=== PATIENT | female | born 1955 | race Caucasian/White ===

== ENCOUNTER → 2017-06-23 17:10 | Outpatient (CLI) | payer OTHER, SELFPAY ==
[2017-06-28 12:56] LABS: HPV APTIMA, High Risk Negative (Negative)
== END ==
PROVIDERS: Family Provider Family Medicine; PCP Family Medicine; Visit Provider Nurse Practitioner Women's Health
DX: Z12.4 Encounter for screening for malignant neoplasm of cervix (principal)
CPT/HCPCS: 88175; G0145

== ENCOUNTER → 2017-07-10 10:02 | Outpatient (CLI) | payer OTHER, SELFPAY ==
--- NOTE | 2017-07-10 10:04 | BI_ITS ---
MAMMOGRAPHY - BILATERAL SCREENING REASON FOR EXAM: Female, 62 years old. Routine annual screening examination. PERTINENT HISTORY: Mother with breast cancer. Aunt with breast cancer. Remote bilateral breast reduction surgery. TECHNIQUE: Digital bilateral breast donte (3D mammographic acquisition) in the CC and MLO projections. 2-D mediolateral oblique (MLO) and craniocaudad (CC) views of both breasts were obtained. CAD: Full Field Digital Mammography with Computer Added Detection was performed. COMPARISON: Comparison is made with prior outside examination dated November 12, 2014. FINDINGS: Breast Composition: The breasts are heterogeneously dense, which may obscure small masses. There are no dominant masses or suspicious calcifications. Stable benign-appearing bilateral axillary lymph nodes. No other significant abnormalities are identified. There has been no significant change since the prior study. BI/SCREENING MAMM (CAD), BILAT IMPRESSION: Stable bilateral screening mammogram. Yearly follow-up mammogram recommended. (A) ASSESSMENT CATEGORY: BIRADS Category 2: Benign. A letter regarding these results will be sent to the patient by the facility within 30 days. Approximately 10% of breast cancers are not detected by mammography. A normal mammogram should not delay biopsy of a clinically suspicious abnormality. [id number] Electronically Signed: Cristi Pena MD at 13:14 EDT Tel [phone], Service support ,
== END ==
PROVIDERS: Family Provider Family Medicine; PCP Family Medicine; Visit Provider Nurse Practitioner Women's Health
DX: Z12.31 Encounter for screening mammogram for malignant neoplasm of breast (principal)
CPT/HCPCS: 77063; 77067

== ENCOUNTER → 2017-07-12 08:16 | Outpatient (CLI) | payer OTHER, SELFPAY ==
--- NOTE | 2017-07-12 08:18 | RAD_ITS ---
STUDY: X-RAY - ESOPHAGUS (BARIUM SWALLOW) WITH FLUOROSCOPY REASON FOR EXAM: Female, 62 years old. Prior fundoplication. Gastroesophageal reflux. TECHNIQUE: 19 view(s) of the esophagus were obtained following swallowing of barium. FLUOROSCOPY TIME (if supplied): (0:23) minutes/seconds COMPARISON: None. FINDINGS: There is no demonstrated esophageal foreign body. There is no demonstrated stricture or mucosal abnormality. Moderate-sized sliding hiatal hernia without gastroesophageal reflux. The patient ingested a 12 mm tablet of barium. The tablet is trapped at the gastroesophageal junction. Normal visualized aortic arch and descending thoracic aorta. Normal visualized pulmonary parenchyma. Normal visualized osseous structures of the thorax. RAD/Esophagus Only IMPRESSION: Moderate sized hiatal hernia without gastroesophageal reflux. The 12 mm tablet of barium is at at the gastroesophageal junction. Electronically Signed: Cristi Pena MD at 9:23 EDT Tel [phone], Service support ,
== END ==
PROVIDERS: Family Provider Family Medicine; PCP Family Medicine; Visit Provider Internal Medicine Gastroenterology
DX: K21.9 Gastro-esophageal reflux disease without esophagitis (principal); Z98.890 Other specified postprocedural states
CPT/HCPCS: 74220

== ENCOUNTER 2018-03-02 19:30 | Observation (INO) | payer OTHER, SELFPAY ==
[2018-03-02] VITALS (7 sets, daily range): BP systolic 111–165; BP diastolic 62–89; PULSE 83–114; RESP 16–22; TEMP 36.5–36.7; O2SAT 95–100; BMI 30.1; BMI 35.8
--- NOTE | 2018-03-02 19:51 | EKG12_ITS ---
Test Reason : SOB,CHEST DISCOMFORT Blood Pressure : / mmHG Vent. Rate : 094 BPM Atrial Rate : 094 BPM P-R Int : 138 ms QRS Dur : 078 ms QT Int : 332 ms P-R-T Axes : 042 030 055 degrees QTc Int : 415 ms Normal sinus rhythm Normal ECG Confirmed by SARA GARNICA, ADRIAN ([id number]), editor farm journal JU DIAZ ([id number]) on 03/07/2018 10:05:27 AM Referred By: Fernando Mcfadden Confirmed By:ADRIAN RUIZ MD
[2018-03-02] MEDS: Ipratropium/Albuterol Sulfate 3 ML AMPUL.NEB INHALATION (20:01)
[2018-03-02 20:29] LABS: Absolute Lymphocyte Count 2.44 X10^3/ul (0.83-4.51); Absolute Neutrophil Count 4.5 X10^3/uL (2.0-7.7); Basophil# 0.03 X10^3/uL; Basophil% 0.4 % (0-1); Eosinophil# 0.11 X10^3/uL; Eosinophils% 1.4 % (0-5); Hematocrit 38.2 % (37-47); Hemoglobin 12.5 g/dl (12.0-15.0); Lymphocyte # 2.44 X10^3/ul (4.0); Lymphocyte % 31.8 % (19-41); Mean Corp Hgb Conc 32.7 g/gl (32-36); Mean Corpuscular Hgb 30.3 pg (27.0-32.0); Mean Corpuscular Volume 92.7 fL (81-99); Monocyte# 0.56 X10^3/uL; Monocyte% 7.3 % (0-10); Neutrophil # 4.51 X10^3/uL (2.7-7.7); Neutrophil % 58.8 % (47-70); POSITIVE COUNT NO; POSITIVE DIFFERENTIAL NO; POSITIVE MORPHOLOGY NO; Platelet Count 317 K/mm3 (150-450); RBC Distribution Width CV 12.5 % (11.6-14.6); RBC Distribution Width SD 42.2 fl (35.1-43.9); Red Blood Count 4.12 M/mm3 (4.2-5.4); White Blood Count 7.7 K/mm3 (4.4-11.0)
[2018-03-02 20:56] LABS: Anion Gap 13 (5-15); BUN 15 mg/dL (7-18); BUN/Creat Ratio 14.4 RATIO (10-20); Calcium,Total 9.7 mg/dL (8.5-10.1); Chloride 99 mmol/L (98-107); Creatinine, Serum 1.04 mg/dL (0.55-1.02); EST Glomerular Filtration Rate 57 mL/min (>60); Est Glom Filt Rate - Afr Amer 69 mL/min (>60); Estimated Creatinine Clearance 50.47 ml/min; Glucose 104 mg/dL (74-106); Potassium 4.1 mmol/L (3.5-5.1); Sodium Level 134 mmol/L (136-145)
[2018-03-02 21:51] LABS: D-Dimer Quantitative (DVT/PE) 0.39 FEU/ug/m (0.27-0.49)
--- NOTE | 2018-03-02 22:14 | ED.VISSUMM ---
- ER Visit Summary Date of Service: 03/02/18 Chief Complaint: [Shortness of breath and chest tightness] History of Present Illness: The patient is a 63 F [presents the emergency department complaint of chest tightness and shortness of breath that she is had ongoing however seem to really get worse today. Patient states in the past when she is used her breathing treatment it would help her symptoms but today it has not helped. Patient has had a cough which is been chronic that is nonproductive. Patient gives history of a hiatal hernia for which she saw a thoracic surgeon recently and was told that the wrap kind of slipped which may be causing some of her heartburn issues. Patient is not had a fever. She was seen at urgent care today and had a chest x-ray that was normal at but [facility] referred to the emergency department given the chest tightness to evaluate for cardiac etiology. Patient denies recent travel or surgery.] Physical Examination: [HEENT-PERRLA, EOMI. Cranial nerves II through XII grossly intact. TMs clear. Mucous membranes moist. No adenopathy. Cardiovascular-regular rate and rhythm without murmur or ectopy Lungs-clear to auscultation, chest wall stable without crepitus or subcu emphysema Abdomen-normoactive bowel sounds, soft, nontender, no rebound or rigidity, no peritoneal signs. Extremities-intact ?4, normal range of motion, normal pulses, atraumatic] Test Results: [EKG obtained shows sinus rhythm with no acute I segment changes. CBC with differential is unremarkable. Chemistries unremarkable. Troponin was less than 0.015. D-dimer was normal. Chest x-ray was not performed as she just had one today at [facility] and was told it was normal.] Emergency Department Course and Treatment: [She was given a DuoNeb aerosol she had some improvement in that the chest tightness started to come back. Patient also given baby aspirin.] Treatment Plan: [Admit for further workup and evaluation of her exertional dyspnea] Disposition: Admit [] Impression: [Chest pain Exertional dyspnea] This note was generated with [employer] dictation software. It may contain incorrect words, spelling, and punctuation that were not noted in review of the chart prior to signing ED Disposition - Plan for ED Patient: Chief Complaint: Shortness of Breath Referrals: Alice Stewart DO [Primary Care Provider] -
--- NOTE | 2018-03-02 22:19 | ED.DCSUM_ITS ---
- ER Visit Summary Date of Service: 03/02/18 Chief Complaint: [Shortness of breath and chest tightness] History of Present Illness: The patient is a 63 F [presents the emergency department complaint of chest tightness and shortness of breath that she is had ongoing however seem to really get worse today. Patient states in the past when she is used her breathing treatment it would help her symptoms but today it has not helped. Patient has had a cough which is been chronic that is nonproductive. Patient gives history of a hiatal hernia for which she saw a thoracic surgeon recently and was told that the wrap kind of slipped which may be causing some of her heartburn issues. Patient is not had a fever. She was seen at urgent care today and had a chest x-ray that was normal at but [facility] referred to the emergency department given the chest tightness to evaluate for cardiac etiology. Patient denies recent travel or surgery.] Physical Examination: [HEENT-PERRLA, EOMI. Cranial nerves II through XII grossly intact. TMs clear. Mucous membranes moist. No adenopathy. Cardiovascular-regular rate and rhythm without murmur or ectopy Lungs-clear to auscultation, chest wall stable without crepitus or subcu emphysema Abdomen-normoactive bowel sounds, soft, nontender, no rebound or rigidity, no peritoneal signs. Extremities-intact ?4, normal range of motion, normal pulses, atraumatic] Test Results: [EKG obtained shows sinus rhythm with no acute I segment changes. CBC with differential is unremarkable. Chemistries unremarkable. Troponin was less than 0.015. D-dimer was normal. Chest x-ray was not performed as she just had one today at [facility] and was told it was normal.] Emergency Department Course and Treatment: [She was given a DuoNeb aerosol she had some improvement in that the chest tightness started to come back. Patient also given baby aspirin.] Treatment Plan: [Admit for further workup and evaluation of her exertional dyspnea] Disposition: Admit [] Impression: [Chest pain Exertional dyspnea] This note was generated with [employer] dictation software. It may contain incorrect words, spelling, and punctuation that were not noted in review of the chart prior to signing ED Disposition - Plan for ED Patient: Chief Complaint: Shortness of Breath Referrals: Alice Stewart DO [Primary Care Provider] -
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
[2018-03-02] MEDS: Aspirin 81 MG TAB.CHEW 324 MG PO (22:53)
--- NOTE | 2018-03-02 23:35 | EKG12_ITS ---
Test Reason : CP ADMIT Blood Pressure : / mmHG Vent. Rate : 082 BPM Atrial Rate : 082 BPM P-R Int : 140 ms QRS Dur : 088 ms QT Int : 370 ms P-R-T Axes : 045 024 033 degrees QTc Int : 432 ms Normal sinus rhythm Normal ECG When compared with ECG of 02-MAR-2018 19:40, MANUAL COMPARISON REQUIRED, DATA IS UNCONFIRMED Confirmed by SARA GARNICA, ADRIAN ([id number]), editorial project manager JU DIAZ ([id number]) on 03/07/2018 10:20:23 AM Referred By: Fernando Mcfadden Confirmed By:ADRIAN RUIZ MD
--- NOTE | 2018-03-02 23:35 | ECHOD_ITS ---
Reason For Study: SOB Procedure This was a 2D Doppler, Color Flow transthoracic echocardiogram. The study was technically difficult. Due to body habitus and breathing treatment resulting in coughing and wheezing. Exam performed portable in patient room. Left Ventricle Normal size and thickness. The estimated ejection fraction is 65 %. Stage 1 diastolic dysfunction. No regional wall motion abnormalities noted. Right Ventricle Normal size and thickness. Normal systolic function. Atria Normal left atrium. Normal right atrium. Normal atrial septum. Mitral Valve The mitral valve is structurally normal. No prolapse or stenosis seen. Tricuspid Valve Normal tricuspid valve. Trivial tricuspid valve insufficiency. Right ventricular systolic pressure estimated to be 30 mmHg. Aortic Valve Normal aortic valve. Trisinus/trileaflet aortic valve. Pulmonic Valve The pulmonic valve is not well visualized. Great Vessels Normal aortic root. Normal arch. Normal inferior vena cava. Inferior vena cava collapse with sniff. Pericardium/Pleural No pericardial effusion. MMode/2D Measurements & Calculations LVIDd: 4.0 cm IVSd: 1.0 cm Ao root diam: 3.0 cm LVIDs: 2.4 cm LVPWd: 0.92 cm FS: 40.8 % LAV(MOD-bp): 44.4 ml LA A4 area: 16.1 cm2 LA dimension(2D): 3.8 cm LAV(MOD-bp) Indexed: 23.4 ml/m2 LAV(MOD-sp2): 42.3 ml LAV(MOD-sp4): 43.2 ml RA A4 area: 10.3 cm2 Doppler Measurements & Calculations MV E max morris: 62.4 cm/sec Lat Peak E' Morris: 9.3 cm/sec Med Peak E' Morris: 7.5 cm/sec MV A max morris: 72.6 cm/sec E/E' lat: 6.7 E/E' med: 8.3 MV E/A: 0.86 Ao V2 max: 155.1 cm/sec LV V1 max: 134.2 cm/sec PA V2 max: 111.1 cm/sec Ao max P.6 mmHg LV V1 max P.2 mmHg TR max morris: 248.8 cm/sec TR max P.8 mmHg Interpretation Summary The estimated ejection fraction is 65 %. Stage 1 diastolic dysfunction. Trivial tricuspid valve insufficiency. Right ventricular systolic pressure estimated to be 30 mmHg. Compared to echo report dated 09/29/2004, no appreciable changes noted. The study was technically difficult. Ordering Physician: Fernando Mcfadden Referring Physician: Alice Stewart Performed By: Gretchen Alfonso RDCS, RVT
[2018-03-03] VITALS (10 sets, daily range): BP systolic 99–106; BP diastolic 61–67; PULSE 64–101; RESP 16–23; TEMP 36.8–37; O2SAT 93–98
--- NOTE | 2018-03-03 05:00 | EKG12_ITS ---
Test Reason : AM EKG Blood Pressure : / mmHG Vent. Rate : 063 BPM Atrial Rate : 063 BPM P-R Int : 144 ms QRS Dur : 086 ms QT Int : 384 ms P-R-T Axes : 034 041 047 degrees QTc Int : 392 ms Normal sinus rhythm Normal ECG When compared with ECG of 02-MAR-2018 23:29, MANUAL COMPARISON REQUIRED, DATA IS UNCONFIRMED Confirmed by SARA GARNICA, ADRIAN ([id number]), senior technical editor JU DIAZ ([id number]) on 03/07/2018 10:22:09 AM Referred By: Fernando Mcfadden Confirmed By:ADRIAN RUIZ MD
[2018-03-03 05:09] LABS: Hematocrit 35.2 % (37-47); Hemoglobin 11.6 g/dl (12.0-15.0); Mean Corpuscular Hgb 30.5 pg (27.0-32.0); Mean Corpuscular Volume 92.6 fL (81-99); Mean Platelet Vol. 10.4 fl (6.2-12.0); Platelet Count 265 K/mm3 (150-450); RBC Distribution Width CV 12.4 % (11.6-14.6); RBC Distribution Width SD 41.7 fl (35.1-43.9); White Blood Count 5.7 K/mm3 (4.4-11.0)
[2018-03-03 05:13] LABS: International Normalized Ratio 1.1
[2018-03-03 05:14] LABS: Partial Thromboplast Time 33.6 Seconds (24.1-36.2)
[2018-03-03 05:18] LABS: Anion Gap 9 (5-15); BUN 14 mg/dL (7-18); Calcium,Total 9.2 mg/dL (8.5-10.1); Chloride 105 mmol/L (98-107); Cholesterol 227 mg/dL (200); Creatinine, Serum 0.82 mg/dL (0.55-1.02); EST Glomerular Filtration Rate 75 mL/min (>60); Est Glom Filt Rate - Afr Amer 91 mL/min (>60); Estimated Creatinine Clearance 90.29 ml/min; Glucose 123 mg/dL (74-106); High Density Lipoprotein 59 mg/dL; Potassium 3.8 mmol/L (3.5-5.1); Sodium Level 140 mmol/L (136-145); Triglycerides 81 mg/dL; Very Low Density Lipoprotein 16 mg/dL (5-40)
[2018-03-03 05:50] LABS: Scan Indicated on CBC? Y/N NO
[2018-03-03] MEDS: Losartan Potassium 100 MG Tablet PO (06:27)
[2018-03-03] MEDS: Aspirin E.C. 81 MG Tablet PO (06:27)
[2018-03-03] MEDS: Ipratropium/Albuterol Sulfate 3 ML AMPUL.NEB INHALATION ×2 (07:55→13:25)
--- NOTE | 2018-03-03 09:10 | NURSING ---
Pt off the unit for stress test.
[2018-03-03] MEDS: Spironolactone 50 MG Tablet 100 MG PO (10:44)
--- NOTE | 2018-03-03 12:46 | STRESSREP ---
Stress Test Report Date: 03/03/2018 Procedure: Exercise tolerance test/imaging study Indications: Chest pain Consent: Per the patient Procedure: The patient exercised on a Wagner protocol for 3 minutes and 30 seconds completing Stage I and 30 seconds of Stage II achieving a peak heart rate of 139 bpm (87 % predicted maximal heart rate) with a peak blood pressure 140/70 mmHg and a peak MET capacity of 4 METs. The baseline ECG demonstrated normal sinus rhythm. The peak exercise ECG demonstrated no obvious ECG changes. There were no cardiac dysrhythmias pretest, during exercise, or recovery. The functional capacity was considered decreased. There was no complaint of chest discomfort during exercise or recovery. The examination was discontinued secondary to dyspnea. Impression: 1. Technically adequate (percent predicted maximal heart rate greater than 85%) exercise tolerance test 2. Peak exercise ECG with no obvious ECG changes 3. There were no cardiac dysrhythmias pretest, during exercise, or recovery 4. Nuclear images pending Myocardial perfusion imaging study: Technique: The patient was injected with 11.9 mCi of technetium 99m Cardiolite and subsequently rest SPECT Cardiolite nuclear imaging was obtained in the horizontal long, vertical long, and short axis views. The patient exercised on a Wagner protocol for 3 minutes 30 seconds completing Stage I and 30 seconds of Stage II achieving a peak heart rate of 139 bpm (87 % predicted maximal heart rate) with a peak blood pressure 140/70 mmHg and a peak MET capacity of 4 METs. The patient was injected with 35 mCi of technetium 99m Cardiolite and subsequently stress SPECT Cardiolite nuclear imaging was obtained in the horizontal long, vertical long, and short axis views. A gated Cardiolite study at peak stress was obtained. Interpretation: Rest and stress SPECT Cardiolite nuclear imaging status post realignment, normalization, and attenuation correction, demonstrates the appearance at rest of area of diminished tracer uptake in portions of the mid towards distal anterior and anteroseptal segments which appears to normalize following stress. Following stress there appears to be relative uniform tracer uptake and myocardial perfusion appearing within normal limits. There is end systolic thickening and brightening. The gated Cardiolite study demonstrates myocardial thickening and inward wall motion. The reported LVEF is 92%. Impression: 1. Rest and stress SPECT Cardiolite nuclear imaging demonstrate resting myocardial perfusion changes which appear to normalize following stress appearing compatible shifting soft tissue attenuation/artifact with no myocardial perfusion changes considered diagnostic for associated stress-induced myocardial ischemia or previous myocardial injury/infarction. 2. The gated Cardiolite study reports an LVEF of 92 %. This note was generated with [employer] software. It may contain incorrect words, spelling, and punctuation that were not noted in checking the note before signing.
--- NOTE | 2018-03-03 13:05 | DCINST_ITS ---
- Discharge Diagnoses Current Active Problems: Current Active and Chronic Problems (Last Reviewed 03/03/18 @ 01:43 by Fernando Mcfadden MD) Chest pain (Acute) You will use the following diet at home:: Cardiac Your food should be the consistency of: Regular Your liquids should be the consistency of: Regular/Thin Discharge Activity: Return to Normal Activity Allergies/Adverse Reactions: Allergies codeine Allergy (Mild, Verified 03/02/18 19:31) Other fluoxetine [From Prozac] Allergy (Mild, Verified 03/02/18 19:31) Angioedema Sulfa (Sulfonamide Antibiotics) Allergy (Mild, Verified 03/02/18 19:31) Other Medications to take at Discharge alprazolam 0.5 mg tablet 0.5 mg PO BID 06/23/17 cyanocobalamin (vit B-12) 1,000 mcg/mL injection solution 100 mcg IM QMONTH 06/23/17 irbesartan 300 mg tablet 300 mg PO QDAY 06/23/17 metoprolol tartrate 100 mg tablet 100 mg PO DAILY 06/23/17 rabeprazole 20 mg tablet,delayed release 20 mg PO BID 06/23/17 spironolactone 100 mg tablet 100 mg PO QDAY 06/23/17 Primary Care Physician: Alice Stewart DO [Primary Care Provider] - Please follow up with your Primary Care Physician in: 1-2 weeks Test Results: Test results from this visit will be discussed in further detail at your follow- up appointment, if applicable. Please Follow Up With: Thoracic surgeon - Regarding hiatal hernia When: Keep prior appointment Proposed Discharge Date: 03/03/18
--- NOTE | 2018-03-03 13:12 | DS.PCM_ITS ---
<Titi Morton - Last Filed: 03/03/18 13:05> Discharge Date and Diagnosis - Problem List Patient Problems: Active and Suspected Problems (Last Reviewed 03/03/18 @ 01:43 by Fernando Mcfadden MD) Chest pain (Acute) Date of Admission: 03/02/18 Date of Discharge: 03/03/18 - Primary Discharge Diagnosis Active and Suspected Problems (Last Reviewed 03/03/18 @ 01:43 by Fernando Mcfadden MD) Chest pain (Acute) - musculoskeletal Hiatal hernia, recurrent GERD Obesity Anxiety/depression HTN thyroid nodule Hospital Course and Treatment Imaging Results: 03/03/18 05:55 Nuclear Stress Test - Treadmil [NM] AM (NON MEDS) Impression: 1. Rest and stress SPECT Cardiolite nuclear imaging demonstrate resting myocardial perfusion changes which appear to normalize following stress appearing compatible shifting soft tissue attenuation/artifact with no myocardial perfusion changes considered diagnostic for associated stress-induced myocardial ischemia or previous myocardial injury/infarction. 2. The gated Cardiolite study reports an LVEF of 92 %. Operations: None Procedures: 2-D Echocardiogram, Stress test Summary of Care Provided: Hospital course: The patient is a 63 year old F with a pmhx of recurrent hiatal hernia, htn, thyroid nodule, GERD, obesity, anxiety and depression who presented to the ER with chest tightness and SOB. She had presented as an outpatient and had a negative CXR reportedly, but then came to the ER. EKG was negative, troponin was negative. She was admitted to the PCU with chest pain. Tele did not show any events. Trop was negative x 3. She had no further chest pain. She underwent a stress test that was negative. Echo was obtained, is pending at this time. She will need her hiatal hernia re-evaluated, which she plans to see a thoracic surgeon in [place] in the next week. This may be causing some of her chest pain and SOB issues. She is already on a PPI. she also recently had outpatient PFT's and will need to follow up to get these results - we do not have them at this time. She was discharged home in stable condition. This patient was seen by Titi Morton PA-C under the supervision of Doctor Janneth. [] Patient Problems: Active and Suspected Problems (Last Reviewed 03/03/18 @ 01:43 by Fernando downey MD) Chest pain (Acute) - Physical Exam General: Alert, Oriented x3, Cooperative HEENT: Atraumatic, PERRLA, EOMI, Normocephalic Neck: Supple, No JVD, Negative Carotid Bruits Lungs: Clear to auscultation, Normal air movement Cardiovascular: Regular rate, Murmur - 2 out of 6 systolic murmur best heard over the left sternal border at the fourth position Abdomen: Bowel Sounds Present, Soft, Non Tender, Obese Extremities: No edema, Capillary Refill Less than 3 Seconds Skin: No rashes, No breakdown Musculoskeletal: No Tenderness to Palpation of Joints or Extremities Neurological: Cranial nerves II-XII grossly intact Psych/Mental Status: Normal Affect, Appropriate, Alert and oriented to time, place, person, mood and affect Vital Signs Temp Pulse Resp BP Pulse Ox 98.4 F 87 20 H 99/61 98 03/03/18 08:01 03/03/18 10:59 03/03/18 08:01 03/03/18 10:46 03/03/18 10:00 Oxygen Delivery Method Room Air Weight: 177 lb 4.026 oz Body Mass Index (BMI) 35.8 Intake and Output for Last 24 Hours 03/01/18 03/02/18 03/03/18 23:59 23:59 23:59 Intake Total 50 / 50 Balance 50 / 50 Laboratory Tests Past 24 Hrs 03/02/18 03/02/18 03/02/18 20:00 20:00 20:00 WBC 7.7 RBC 4.12 L Hgb 12.5 Hct 38.2 MCV 92.7 MCH 30.3 MCHC 32.7 RDW 12.5 RDW Differential 42.2 Plt Count 317 MPV 11.0 Immature Gran % (Auto) 0.300 Neut % (Auto) 58.8 Lymph % (Auto) 31.8 [place] % (Auto) 7.3 Eos % (Auto) 1.4 Baso % (Auto) 0.4 Absolute Neuts (auto) 4.5 Absolute Lymphs (auto) 2.44 Total Counted Not Reportable PT INR APTT D-Dimer Quant (PE/DVT) Cancelled Sodium 134 L Potassium 4.1 Chloride 99 Carbon Dioxide 22.0 Anion Gap 13 BUN 15 Creatinine 1.04 H Estim Creat Clear Calc 50.47 Est GFR (MDRD) Af Amer 69 Est GFR (MDRD) Non-Af 57 L BUN/Creatinine Ratio 14.4 Glucose 104 Calcium 9.7 Troponin I < 0.015 B-Natriuretic Peptide Triglycerides Cholesterol LDL Cholesterol VLDL Cholesterol HDL Cholesterol 03/02/18 03/02/18 03/02/18 20:00 20:40 21:29 WBC RBC Hgb Hct MCV MCH MCHC RDW RDW Differential Plt Count MPV Immature Gran % (Auto) Neut % (Auto) Lymph % (Auto) [place] % (Auto) Eos % (Auto) Baso % (Auto) Absolute Neuts (auto) Absolute Lymphs (auto) Total Counted PT INR APTT D-Dimer Quant (PE/DVT) Cancelled 0.39 Sodium Potassium Chloride Carbon Dioxide Anion Gap BUN Creatinine Estim Creat Clear Calc Est GFR (MDRD) Af Amer Est GFR (MDRD) Non-Af BUN/Creatinine Ratio Glucose Calcium Troponin I B-Natriuretic Peptide 12.0 Triglycerides Cholesterol LDL Cholesterol VLDL Cholesterol HDL Cholesterol 03/02/18 03/03/18 03/03/18 23:20 02:02 04:36 WBC RBC Hgb Hct MCV MCH MCHC RDW RDW Differential Plt Count MPV Immature Gran % (Auto) Neut % (Auto) Lymph % (Auto) [place] % (Auto) Eos % (Auto) Baso % (Auto) Absolute Neuts (auto) Absolute Lymphs (auto) Total Counted PT INR APTT D-Dimer Quant (PE/DVT) Sodium 140 Potassium 3.8 Chloride 105 Carbon Dioxide 26.0 Anion Gap 9 BUN 14 Creatinine 0.82 Estim Creat Clear Calc 90.29 Est GFR (MDRD) Af Amer 91 Est GFR (MDRD) Non-Af 75 BUN/Creatinine Ratio 17.0 Glucose 123 H Calcium 9.2 Troponin I < 0.015 < 0.015 B-Natriuretic Peptide Triglycerides 81 Cholesterol 227 H LDL Cholesterol 152 H VLDL Cholesterol 16 HDL Cholesterol 59 03/03/18 03/03/18 04:36 04:36 WBC 5.7 RBC 3.80 L Hgb 11.6 L Hct 35.2 L MCV 92.6 MCH 30.5 MCHC 33.0 RDW 12.4 RDW Differential 41.7 Plt Count 265 MPV 10.4 Immature Gran % (Auto) Neut % (Auto) Lymph % (Auto) [place] % (Auto) Eos % (Auto) Baso % (Auto) Absolute Neuts (auto) Absolute Lymphs (auto) Total Counted PT 14.0 INR 1.1 APTT 33.6 D-Dimer Quant (PE/DVT) Sodium Potassium Chloride Carbon Dioxide Anion Gap BUN Creatinine Estim Creat Clear Calc Est GFR (MDRD) Af Amer Est GFR (MDRD) Non-Af BUN/Creatinine Ratio Glucose Calcium Troponin I B-Natriuretic Peptide Triglycerides Cholesterol LDL Cholesterol VLDL Cholesterol HDL Cholesterol Discharge Diet: Low fat/ Low Cholesterol, 2000 mg Sodium Diet Discharge Activity: Return to Normal Activity Home Medications: Medications to take at Discharge alprazolam 0.5 mg tablet 0.5 mg PO BID 06/23/17 cyanocobalamin (vit B-12) 1,000 mcg/mL injection solution 100 mcg IM QMONTH 06/23/17 irbesartan 300 mg tablet 300 mg PO QDAY 06/23/17 metoprolol tartrate 100 mg tablet 100 mg PO DAILY 06/23/17 rabeprazole 20 mg tablet,delayed release 20 mg PO BID 06/23/17 spironolactone 100 mg tablet 100 mg PO QDAY 06/23/17 Primary Care Physician: Alice Stewart DO [Primary Care Provider] - Please follow up with your Primary Care Physician in: 1-2 weeks Please Follow Up With: Thoracic surgeon - Regarding hiatal hernia When: Keep prior appointment Disposition: Home Minutes spent on discharge:: 35 Patient Condition:: Stable Medical Necessity - Tobacco Use Smoking Status: Former smoker Meaningful Use Info Meaningful Use Diagnoses (Choose all that apply): None applicable <Yon Lagunas F - Last Filed: 03/03/18 14:35> Discharge Date and Diagnosis - Primary Discharge Diagnosis Active and Suspected Problems (Last Reviewed 03/03/18 @ 01:43 by Fernando bangura MD) Chest pain (Acute) Hospital Course and Treatment Imaging Results: 03/03/18 05:55 Nuclear Stress Test - Treadmil [NM] AM (NON MEDS) Summary of Care Provided: The patient is a 63 year old F [] - Physical Exam Vital Signs Temp Pulse Resp BP Pulse Ox 98.6 F 88 23 H 103/67 93 03/03/18 12:45 03/03/18 13:25 03/03/18 13:25 03/03/18 12:45 03/03/18 12:45 Oxygen Delivery Method Room Air Weight: 177 lb 4.026 oz Body Mass Index (BMI) 35.8 Intake and Output for Last 24 Hours 03/01/18 03/02/18 03/03/18 23:59 23:59 23:59 Intake Total 50 / 50 Balance 50 / 50 Laboratory Tests Past 24 Hrs 03/02/18 03/02/18 03/02/18 20:00 20:00 20:00 WBC 7.7 RBC 4.12 L Hgb 12.5 Hct 38.2 MCV 92.7 MCH 30.3 MCHC 32.7 RDW 12.5 RDW Differential 42.2 Plt Count 317 MPV 11.0 Immature Gran % (Auto) 0.300 Neut % (Auto) 58.8 Lymph % (Auto) 31.8 [place] % (Auto) 7.3 Eos % (Auto) 1.4 Baso % (Auto) 0.4 Absolute Neuts (auto) 4.5 Absolute Lymphs (auto) 2.44 Total Counted Not Reportable PT INR APTT D-Dimer Quant (PE/DVT) Cancelled Sodium 134 L Potassium 4.1 Chloride 99 Carbon Dioxide 22.0 Anion Gap 13 BUN 15 Creatinine 1.04 H Estim Creat Clear Calc 50.47 Est GFR (MDRD) Af Amer 69 Est GFR (MDRD) Non-Af 57 L BUN/Creatinine Ratio 14.4 Glucose 104 Calcium 9.7 Troponin I < 0.015 B-Natriuretic Peptide Triglycerides Cholesterol LDL Cholesterol VLDL Cholesterol HDL Cholesterol 03/02/18 03/02/18 03/02/18 20:00 20:40 21:29 WBC RBC Hgb Hct MCV MCH MCHC RDW RDW Differential Plt Count MPV Immature Gran % (Auto) Neut % (Auto) Lymph % (Auto) [place] % (Auto) Eos % (Auto) Baso % (Auto) Absolute Neuts (auto) Absolute Lymphs (auto) Total Counted PT INR APTT D-Dimer Quant (PE/DVT) Cancelled 0.39 Sodium Potassium Chloride Carbon Dioxide Anion Gap BUN Creatinine Estim Creat Clear Calc Est GFR (MDRD) Af Amer Est GFR (MDRD) Non-Af BUN/Creatinine Ratio Glucose Calcium Troponin I B-Natriuretic Peptide 12.0 Triglycerides Cholesterol LDL Cholesterol VLDL Cholesterol HDL Cholesterol 03/02/18 03/03/18 03/03/18 23:20 02:02 04:36 WBC RBC Hgb Hct MCV MCH MCHC RDW RDW Differential Plt Count MPV Immature Gran % (Auto) Neut % (Auto) Lymph % (Auto) [place] % (Auto) Eos % (Auto) Baso % (Auto) Absolute Neuts (auto) Absolute Lymphs (auto) Total Counted PT INR APTT D-Dimer Quant (PE/DVT) Sodium 140 Potassium 3.8 Chloride 105 Carbon Dioxide 26.0 Anion Gap 9 BUN 14 Creatinine 0.82 Estim Creat Clear Calc 90.29 Est GFR (MDRD) Af Amer 91 Est GFR (MDRD) Non-Af 75 BUN/Creatinine Ratio 17.0 Glucose 123 H Calcium 9.2 Troponin I < 0.015 < 0.015 B-Natriuretic Peptide Triglycerides 81 Cholesterol 227 H LDL Cholesterol 152 H VLDL Cholesterol 16 HDL Cholesterol 59 03/03/18 03/03/18 04:36 04:36 WBC 5.7 RBC 3.80 L Hgb 11.6 L Hct 35.2 L MCV 92.6 MCH 30.5 MCHC 33.0 RDW 12.4 RDW Differential 41.7 Plt Count 265 MPV 10.4 Immature Gran % (Auto) Neut % (Auto) Lymph % (Auto) [place] % (Auto) Eos % (Auto) Baso % (Auto) Absolute Neuts (auto) Absolute Lymphs (auto) Total Counted PT 14.0 INR 1.1 APTT 33.6 D-Dimer Quant (PE/DVT) Sodium Potassium Chloride Carbon Dioxide Anion Gap BUN Creatinine Estim Creat Clear Calc Est GFR (MDRD) Af Amer Est GFR (MDRD) Non-Af BUN/Creatinine Ratio Glucose Calcium Troponin I B-Natriuretic Peptide Triglycerides Cholesterol LDL Cholesterol VLDL Cholesterol HDL Cholesterol Code Visit Addendum: Dr. Lagunas I personally examined the patient and reviewed the chart. I agree with the above. 63-year-old female presenting as a chest pain rule out. She underwent a cardiac stress test today which was normal. She also had an echo which demonstrated an EF of 65%, grade 1 diastolic dysfunction, and RSVP of 30 mmHg. Of note her echo remains unchanged from 2004, and her chest pain has resolved. She is to follow-up with her PCP for her hiatal hernia which could be causing some of the chest discomfort, as well as PFTs for her dyspnea. OBSV E&M: [id number] Observation care discharge
--- NOTE | 2018-03-03 13:20 | NURSING ---
Pt's stress test negative, can be discharged to home. Pt aware, she will order food and will receive flu shot injection before discharge
--- NOTE | 2018-03-03 13:43 | NURSING ---
Discharge instructions reviewed with pt, verbalizes understanding. Flu shot given IM Left Deltoid per order. Pt awaiting tray from dietary.
== END 2018-03-03 13:04 | disposition home or self-care (01) ==
LOC: ED 20:12 → PCU 22:40
PROVIDERS: Admitting Provider Hospitalist; Emergency Provider Emergency Medicine; Family Provider Family Medicine; PCP Family Medicine; Referring Provider Hospitalist; Visit Provider Family Medicine
DX: R07.89 Other chest pain (principal); R06.02 Shortness of breath; Z23 Encounter for immunization; K21.9 Gastro-esophageal reflux disease without esophagitis; F41.9 Anxiety disorder, unspecified; F32.9 Major depressive disorder, single episode, unspecified; I10 Essential (primary) hypertension; K44.9 Diaphragmatic hernia without obstruction or gangrene; E04.1 Nontoxic single thyroid nodule; E66.9 Obesity, unspecified; Z68.35 Body mass index [BMI] 35.0-35.9, adult; Z71.3 Dietary counseling and surveillance; Z79.899 Other long term (current) drug therapy; Z87.891 Personal history of nicotine dependence
CPT/HCPCS: 36415; 78452; 80048; 80061; 83880; 84484; 85025; 85027; 85379; 85610; 85730; 93005; 93017; 93306; 94640; 99218; 99284; A9500; 90686; A4216; G0378

== ENCOUNTER 2018-07-27 17:52 | Emergency (ER) | payer OTHER, SELFPAY ==
[2018-03-02 23:44] VITALS: BMI 35.8
[2018-07-27 17:53] VITALS: BP 135/80; PULSE 113; RESP 28; TEMP 36.6; O2SAT 100; BMI 36.3
--- NOTE | 2018-07-27 18:31 | RAD_ITS ---
STUDY: X-RAY CHEST REASON FOR EXAM: Female, 63 years old. Asthma, shortness of breath with cough TECHNIQUE: PA and lateral views of the chest. COMPARISON: None. FINDINGS: engraving patternmaker leads are present. The lungs are clear and expanded. There is no demonstrated pleural abnormality. Normal size heart. Normal mediastinum and davian. Normal visualized pulmonary arteries. There are calcified plaques of the aortic arch. Normal visualized thoracic spine. Normal visualized ribs, clavicles, and shoulders. There is no demonstrated abnormality of the visualized soft tissue structures of the upper abdomen. RAD/Chest PA and Lateral IMPRESSION: Calcific plaques of the aortic arch. No acute cardiopulmonary disease process is seen. Electronically Signed: Ty Giron MD at 19:19 EDT , Service support ,
--- NOTE | 2018-07-27 18:31 | ED.VIS.DYS ---
History of Present Illness Chief Complaint: Asthma Informant: Patient Onset: Days - 3 Activity at onset: Exertion Timing: Continuous Quality: Dyspnea on exertion, Wheezing Current Severity: Mild Maximum Severity: Severe Worsened by: Coughing, Exertion Relieved by: Albuterol, Rest Associated Symptoms: Clear sputum, Cough. Negative for: Bloody Sputum, Fever Chest Pain: Continuous, Tightness Narrative: Patient states since she is got started on Breo 6 months ago, she has been having more asthma flareups. This started about 3 days ago. She does not know if anything in particular triggered it, she has been coughing and occasionally having clear mucus, no fevers, green/yellow sputum, or blood. No history of heart problems. No leg edema or significant orthopnea although lying down makes her reflux worse which has been theorized to be contributing to her asthma. Prior similar symptoms: Yes - asthma Recent Illness/Hospitalization: No - Past Medical History (1) Asthma Status: Chronic Past Medical History - Allergies and Home Meds Allergies/Adverse Reactions: Allergies codeine Allergy (Mild, Verified 07/27/18 18:59) Other fluoxetine [From Prozac] Allergy (Mild, Verified 07/27/18 18:59) Angioedema Sulfa (Sulfonamide Antibiotics) Allergy (Mild, Verified 07/27/18 18:59) Other Primary Care Physician: Sandee Márquez MD [Primary Care Provider] - Lives: With Family Smoking Status: Former smoker Review of Systems General: Denies: Chills, Fever Cardiovascular: Reports: Chest pain. Denies: Palpitations, Heart racing Respiratory: Reports: Dyspnea, Cough, Sputum Gastrointestinal: Denies: Abdominal pain, Nausea, Vomiting, Diarrhea Musculoskeletal: Denies: Swelling, Extremity Pain Physical Exam Vital Signs/Narrative: Vital Signs Temp Pulse Resp BP Pulse Ox 07/27/18 17:53 97.8 F 113 H 28 H 135/80 H 100 Inital Vital Signs reviewed: Yes General: Well nourished, Well developed, No Acute Distress Head: Normocephalic, Atraumatic Eyes: Perrl, EOMI ENT: Moist mucous membranes, No rhinorrhea. Negative for: Sinus tenderness Neck: Supple, Nontender, No JVD Cardiovascular: Regular rate, Regular rhythm, No murmurs Respiratory: No distress - Speaking in full sentences, conversive, CTA bilaterally, Chest nontender Abdomen: Soft, Nontender, Nondistended, Normal bowel sounds Extremities: Nontender, No edema. Negative for: Calf Tenderness Skin: Normal color, No rash, No Trauma Neurological: Alert, Oriented x3, Cranial nerves II-XII grossly intact, Normal Strength, Normal Sensation Psychological: Normal affect, Normal Mood Diagnostic/Tx/Re-eval Clinical Impression(s) from Imaging Studies Chest X-Ray 07/27/18 18:31 IMPRESSION: Calcific plaques of the aortic arch. No acute cardiopulmonary disease process is seen. Electronically Signed: Ty Giron MD at 19:19 EDT , Service support , Treatment - Dyspnea: Albuterol, Atrovent Repeat Evaluation: Improved - Medical Decision Making She is feeling better after treatment. Chest x-ray shows no pneumonia. No indication for antibiotics here, gave her initial dose of steroids but then she decided she would prefer Kenalog injection as opposed to prescription so she was given an injection of 40 mgs. ED Disposition - Plan for ED Patient: Disposition: Home or Assisted Living Diagnosis: Asthma exacerbation Instructions: Discharge Instructions for Asthma Referrals: Sandee Márquez MD [Primary Care Provider] - Juan Correa MD [NON-STAFF] - Keep [facility] appointment (or sooner if able)
[2018-07-27 18:41] VITALS: PULSE 78; RESP 18
[2018-07-27] MEDS: Ipratropium/Albuterol Sulfate 3 ML AMPUL.NEB INHALATION (18:41)
[2018-07-27] MEDS: predniSONE 20 MG Tablet 40 MG PO (18:53)
[2018-07-27 18:57] VITALS: O2SAT 98
[2018-07-27] MEDS: Triamcinolone Acetonide 40 MG/ML Vial IM (19:55)
[2018-07-27 20:02] VITALS: BP 121/78; PULSE 81; RESP 18; O2SAT 98
== END 2018-07-27 20:15 | disposition home or self-care (01) ==
PROVIDERS: Emergency Provider Emergency Medicine; Family Provider Internal Medicine; PCP Internal Medicine
DX: J45.901 Unspecified asthma with (acute) exacerbation (principal); Z88.2 Allergy status to sulfonamides; Z87.891 Personal history of nicotine dependence
CPT/HCPCS: 71046; 94640; 96372; 99283

== ENCOUNTER → 2019-07-28 07:28 | Outpatient (CLI) | payer OTHER, SELFPAY ==
--- NOTE | 2019-07-28 07:43 | BI_ITS ---
MAMMOGRAPHY - BILATERAL SCREENING REASON FOR EXAM: Female, 64 years old. Routine annual screening examination. PERTINENT HISTORY: Mother with breast cancer. Aunts with breast cancer. History of prior bilateral breast reduction surgery and right breast biopsy. TECHNIQUE: Digital bilateral breast raul (3D mammographic acquisition) in the CC and MLO projections. 2-D mediolateral oblique (MLO) and craniocaudad (CC) views of both breasts were obtained. CAD: Full Field Digital Mammography with Computer Added Detection was performed. COMPARISON: Comparison is made with prior examination dated July 10, 2017. FINDINGS: Breast Composition: The breasts are heterogeneously dense, which may obscure small masses. There are no dominant masses or suspicious calcifications. Stable benign-appearing bilateral axillary lymph nodes. No other significant abnormalities are identified. There has been no significant change since the prior study. BI/SCREEN MAMM (CAD) W/RAUL BILAT IMPRESSION: Stable bilateral screening mammogram. Yearly follow-up mammogram recommended. (A) ASSESSMENT CATEGORY: BIRADS Category 2: Benign. A letter regarding these results will be sent to the patient by the facility within 30 days. Approximately 10% of breast cancers are not detected by mammography. A normal mammogram should not delay biopsy of a clinically suspicious abnormality. [id number] Electronically Signed: Cristi Pena, at 9:05 EDT , Service support ,
== END ==
PROVIDERS: PCP Internal Medicine; Referring Provider Internal Medicine; Visit Provider Internal Medicine
DX: Z12.31 Encounter for screening mammogram for malignant neoplasm of breast (principal); Z80.3 Family history of malignant neoplasm of breast
CPT/HCPCS: 77063; 77067

== ENCOUNTER → 2019-09-13 10:25 | Outpatient (CLI) | payer OTHER, SELFPAY | PROVIDERS: PCP Internal Medicine; Referring Provider Nurse Practitioner; Visit Provider Nurse Practitioner | DX: Z20.828 Contact with and (suspected) exposure to other viral communicable diseases (principal); I10 Essential (primary) hypertension; J45.909 Unspecified asthma, uncomplicated | CPT/HCPCS: 87635; G2023; U0003 ==

== ENCOUNTER 2020-08-15 17:58 | Emergency (ER) | payer OTHER, SELFPAY ==
[2020-08-15 17:58] VITALS: BP 164/91; PULSE 122; RESP 24; TEMP 36.8; O2SAT 99; BMI 36.3
[2020-08-15 18:05] VITALS: O2SAT 100
--- NOTE | 2020-08-15 18:09 | EDS_ITS ---
HPI History of Present Illness Chief Complaint: Asthma Narrative Narrative: 65-year-old female with history of asthma presenting for breathing treatments. She states that for the last couple of days she has been dealing with her asthma and having to use her albuterol inhaler more frequently. Patient states that she was able to control this pretty well. She feels like she may need steroids at this time. She states that she has not had an asthma attack in years and has never been hospitalized or intubated for asthma attacks. She has not had a fever, body aches, chills. She denies chest pain. Patient has already had COVID-19 and has had her vaccine. Patient states that she was in [place] and her breathing got worse and she came to the ER before going home to get breathing treatments. She does have a home nebulizer which she has not had to use as of yet. [facility] Medical History Anxiety and depression Hypertension Thyroid nodule Home Medications alprazolam 0.5 mg tablet 0.5 mg PO BID 06/23/17 [History Last Taken 03/02/18 16:00] cyanocobalamin (vitamin B-12) 1,000 mcg/mL injection solution 100 mcg IM QMONTH 06/23/17 [History Last Taken 02/14/18] rabeprazole 20 mg tablet,delayed release 20 mg PO BID 06/23/17 [History Last Taken 03/02/18 16:00] spironolactone 100 mg tablet 100 mg PO QDAY 06/23/17 [History Last Taken 03/01/18 17:00] amitriptyline 50 mg PO QHS 08/15/20 [History Last Taken Unknown] hydrochlorothiazide 12.5 mg PO DAILY 08/15/20 [History Last Taken Unknown] mometasone-formoterol [Dulera] 2 puff INHALATION BID 08/15/20 [History Last Taken Unknown] prednisone 50 mg PO DAILY #5 tab 08/15/20 [Rx Last Taken Unknown] tiotropium bromide [Spiriva Respimat] 2 puff INHALATION DAILY 08/15/20 [History Last Taken Unknown] Allergy/AdvReac Type Severity Reaction Status Date / Time codeine Allergy Mild Other Verified 08/15/20 18:00 fluoxetine [From Prozac] Allergy Mild Angioedema Verified 08/15/20 18:00 Sulfa (Sulfonamide Allergy Mild Other Verified 08/15/20 18:00 Antibiotics) Family History Mother Breast cancer Aunt Breast cancer Cancer ovarian Father Cancer lung-smoker Brother Myocardial infarction Surgical History bladder sling H/O tubal ligation History of repair of hiatal hernia Hx of breast reduction, elective S/P breast lumpectomy Social History Smoking Status: Former smoker alcohol intake: current details: social substance use type: does not use caffeine: Yes what type of physical activity do you participate in: none seatbelt use: always do you feel safe at home: Yes additional social history: [employer]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[employer] ) Patient works at [employer] in [employer] ED Constitutional Constitutional ED: Denies chills or fever(s) Eyes Eyes: Denies blurry vision or change in vision ENT ENT ED: Denies ear pain, rhinorrhea or sore throat Cardiovascular Cardiovascular: Denies chest pain or palpitations Respiratory/Chest Respiratory/Chest: Reports dyspnea; Denies cough or sputum Gastrointestinal Gastrointestinal: Denies abdominal pain, nausea or vomiting Genitourinary Genitourinary ED: Denies dysuria or hematuria Musculoskeletal Musculoskeletal: Denies arthralgias or myalgias Integumentary Denies abscess or rash Neurologic Neurologic: Denies headache(s), paresthesias or weakness Psychiatric Psychiatric: Denies anxiety or depression EXAM Physical Exam Const Vital Signs: 08/15/20 17:58 08/15/20 18:05 08/15/20 18:29 Temperature 98.2 F Temperature Source Temporal Pulse Rate 122 H 113 H Respiratory Rate 24 H 28 H Respiratory Effort Short of Breath Short of Breath Respiratory Depth Shallow Shallow Respiratory Pattern Irregular Tachypnea Blood Pressure 164/91 H Blood Pressure Mean 115 Pulse Ox 99 95 Oxygen Delivery Method Room Air Room Air Room Air 08/15/20 19:53 Temperature Temperature Source Pulse Rate 95 Respiratory Rate 18 Respiratory Effort Respiratory Depth Respiratory Pattern Blood Pressure Blood Pressure Mean Pulse Ox 96 Oxygen Delivery Method Positive well nourished General Appearance ED: NAD HEENT Reports moist mucous membranes atraumatic Eyes PERRL and EOMs intact bilaterally Resp Auscultation: wheezes scattered wheezes Cardio regular rhythm Rate: tachycardic Extremity normal to inspection General Extremety ED: Negative for edema General Extremity: Negative for edema Neuro oriented x3 Sensorium / Orientation: alert Psych mental status grossly normal Thought Process: normal thought process Skin Lesions: no lesions Rashes: no rashes MDM MDM MDM Narrative Medical decision making narrative: Patient seen and evaluated on arrival room. She does have scattered wheezing throughout bilateral lung [place]. These are mild. She does not appear to be in respiratory distress. Patient will be given prednisone and breathing treatments. She will be reevaluated. Chest x-ray shows no acute cardiopulmonary process as interpreted by myself. The radio logist does agree. On reevaluation she feels much improved. She will be discharged home with a prednisone burst. She has breathing treatments and an albuterol halo at home. Patient stable for discharge. Impression: 1. Asthma exacerbation Radiography Diagnostic Testing: Radiology Impression Chest X-Ray 08/15/20 18:15 IMPRESSION: Normal x-ray examination of the chest. Electronically Signed: Ethel Bazan MD at 19:01 EDT Tel , Service support , Discharge Plan Triage Chief Complaint: Asthma ED Provider: Axel Santoyo Dx/Rx/DC Orders Instructions: ED Asthma, Acute (Adult) Prescriptions: New prednisone 50 mg tablet 50 mg PO DAILY Qty: 5 RF: 0 No Action spironolactone [Aldactone] 100 mg tablet 100 mg PO QDAY RF: 0 rabeprazole [AcipHex] 20 mg tablet,delayed release (DR/EC) 20 mg PO BID RF: 0 cyanocobalamin (vitamin B-12) 1,000 mcg/mL solution 100 mcg IM QMONTH RF: 0 alprazolam [Xanax] 0.5 mg tablet 0.5 mg PO BID RF: 0 amitriptyline 50 mg tablet 50 mg PO QHS RF: 0 hydrochlorothiazide 12.5 mg capsule 12.5 mg PO DAILY RF: 0 Dulera 100-5 mcg/actuation HFA aerosol inhaler 2 puff INHALATION BID RF: 0 Spiriva Respimat 1.25 mcg/actuation mist 2 puff INHALATION DAILY RF: 0 Primary Care Provider: Sandee Márquez Referrals: Sandee Márquez MD [Primary Care Provider] - Disposition Disposition: Home, Self Care Discharge Date/Time: 08/15/20 19:56
--- NOTE | 2020-08-15 18:15 | RAD_ITS ---
STUDY: X-RAY CHEST REASON FOR EXAM: Female, 65 years old. dyspnea TECHNIQUE: Single AP portable view of the chest. COMPARISON: 07/27/2018. FINDINGS: The lungs are clear and expanded. There is no demonstrated pleural abnormality. Normal size heart. Normal mediastinum and davian. Normal visualized pulmonary arteries. Normal visualized aortic arch and descending thoracic aorta. Normal visualized thoracic spine. Normal visualized ribs, clavicles, and shoulders. There is no demonstrated abnormality of the visualized soft tissue structures of the upper abdomen. RAD/Chest 1 View (Portable) IMPRESSION: Normal x-ray examination of the chest. Electronically Signed: Ethel Bazan MD at 19:01 EDT Tel , Service support ,
[2020-08-15 18:29] VITALS: PULSE 113; RESP 24; RESP 28; O2SAT 95
[2020-08-15] MEDS: Albuterol 2.5 MG/3 ML VIAL.NEB. INHALATION (18:29)
[2020-08-15] MEDS: Ipratropium/Albuterol Sulfate 3 ML AMPUL.NEB INHALATION (18:29)
[2020-08-15] MEDS: predniSONE 20 MG Tablet 60 MG PO (18:51)
--- NOTE | 2020-08-15 19:29 | CPS ---
x1 Albuterol given to pt. in ER as well
[2020-08-15 19:53] VITALS: PULSE 95; RESP 18; O2SAT 96
== END 2020-08-15 19:56 | disposition home or self-care (01) ==
PROVIDERS: Emergency Provider Student in an Organized Health Care Education/Training Program; PCP Internal Medicine
DX: J45.901 Unspecified asthma with (acute) exacerbation (principal); I10 Essential (primary) hypertension; E04.1 Nontoxic single thyroid nodule; F32.9 Major depressive disorder, single episode, unspecified; F41.9 Anxiety disorder, unspecified; Z86.16 Personal history of COVID-19; Z79.51 Long term (current) use of inhaled steroids; Z79.52 Long term (current) use of systemic steroids; Z79.899 Other long term (current) drug therapy; Z87.891 Personal history of nicotine dependence
CPT/HCPCS: 71045; 94640; 99251; 99283; G0463

== ENCOUNTER 2023-08-18 12:09 | Emergency (ER) | payer MEDICARE, BC, SELFPAY ==
[2023-08-18 12:09] VITALS: BP 124/79; PULSE 102; RESP 20; TEMP 36; O2SAT 97; BMI 37.6
--- NOTE | 2023-08-18 13:15 | EDS_ITS ---
HPI History of Present Illness Chief Complaint: Complaint Informant: patient Onset/Context/Timing Onset: Month(s) (1) Context: Gradual Onset Timing: Intermittent Quality: Sharp, aching Location: Right inguinal area and right flank Worsened by: Movement Relieved by: Nothing Narrative Narrative: Patient presents with right inguinal pain that has been intermittent for the last month. Patient states it comes on gradually. Patient states last for hours. Patient describes her pain as sharp and aching. Patient states it is over the right inguinal area and radiates into her right flank area. Patient states it is worse with movement. Patient states she was recently treated for urinary tract infection. Patient admits to a low-grade fever of 99.8. Patient also admits to some chills and sweats. Patient admits to some nausea but denies any vomiting. [facility] Medical History Thyroid nodule Hypertension Anxiety and depression Home Medications ?Medication ?Instructions ?Recorded ?Last Taken ?Type alprazolam 0.5 mg tablet (Xanax) 0.5 mg PO BID anxiety 06/23/17 03/02/18 16:00 History cyanocobalamin (vitamin B-12) 100 mcg IM QMONTH supplement 06/23/17 02/14/18 History 1,000 mcg/mL injection solution rabeprazole 20 mg tablet,delayed 20 mg PO BID reflux 06/23/17 03/02/18 16:00 History release (AcipHex) spironolactone 100 mg tablet 100 mg PO QDAY diuretic 06/23/17 03/01/18 17:00 History (Aldactone) amitriptyline 50 mg tablet 50 mg PO QHS 08/15/20 Unknown History hydrochlorothiazide 12.5 mg capsule 12.5 mg PO DAILY 08/15/20 Unknown History mometasone-formoterol HFA 100 2 puff inhalation BID 08/15/20 Unknown History mcg-5 mcg/actuation aerosol inhaler (Dulera) prednisone 50 mg tablet 50 mg PO DAILY #5 tabs 08/15/20 Unknown Rx tiotropium bromide 1.25 2 puff inhalation DAILY 08/15/20 Unknown History mcg/actuation mist for inhalation (Spiriva Respimat) hydrocodone-acetaminophen 5-325mg 1 tab PO Q6H PRN PRN Pain 3 days 08/18/23 Unknown Rx 5mg-325mg #10 TABLETS Allergy/AdvReac Type Severity Reaction Status Date / Time codeine Allergy Mild Other Verified 08/15/20 18:00 fluoxetine (From Prozac) Allergy Mild Angioedema Verified 08/15/20 18:00 Sulfa (Sulfonamide Allergy Mild Other Verified 08/15/20 18:00 Antibiotics) Family History Mother Breast cancer Aunt Breast cancer Cancer ovarian Father Cancer lung-smoker Brother Myocardial infarction Surgical History S/P breast lumpectomy History of repair of hiatal hernia bladder sling H/O tubal ligation Hx of breast reduction, elective Social History Smoking Status: Former smoker alcohol intake: current details: social substance use type: does not use caffeine: Yes what type of physical activity do you participate in: none seatbelt use: always do you feel safe at home: Yes additional social history: [employer]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[employer]) Patient works at [employer] in [employer] ED Constitutional Constitutional ED: Reports chills, fever(s) and sweats Eyes Eyes: Denies blurry vision or change in vision ENT ENT ED: Denies rhinorrhea or sore throat Cardiovascular Cardiovascular: Denies chest pain or palpitations Respiratory/Chest Respiratory/Chest: Reports cough; Denies dyspnea Gastrointestinal Gastrointestinal: Reports abdominal pain and nausea; Denies vomiting Genitourinary Genitourinary ED: Denies dysuria or hematuria Musculoskeletal Musculoskeletal: Reports back pain; Denies neck pain Integumentary Denies abscess or rash Neurologic Neurologic: Denies headache(s) or weakness Allergic/Immunologic Allergic/Immunologic ED: Denies mouth swelling or urticaria EXAM Physical Exam Const Vital Signs: 08/18/23 12:09 08/18/23 14:09 Temperature 96.8 F L Temperature Source Temporal Pulse Rate 102 H 75 Respiratory Rate 20 H 18 Blood Pressure 124/79 H 136/75 H Blood Pressure Mean 94 95 Pulse Ox 97 95 Oxygen Delivery Method Room Air Room Air Positive well nourished and well developed General Appearance ED: well developed and NAD HEENT Reports moist mucous membranes Neck supple and no JVD Resp normal respiratory effort and clear to auscultation bilaterally Cardio regular rate and regular rhythm GI Palpation: soft and tender RLQ Back/Spine General Back: CVA tenderness right Neuro oriented x3, CN's II-XII intact bilaterally and no sensory deficits noted Sensorium / Orientation: alert Motor Exam: strength 5/5 throughout Psych mental status grossly normal MDM MDM MDM Narrative Medical decision making narrative: Differential diagnosis includes urinary tract infection, pyelonephritis, ureteral calculus, appendicitis, gastroenteritis, diverticulitis, bowel obstruction, perforation, viral illness, and electrolyte abnormality. CBC will be obtained to assess for leukocytosis and anemia. Basic metabolic profile will be obtained to assess for electrolyte abnormality and renal function. Urinalysis will be obtained to assess for urinary tract infection and hematuria. CT scan of the abdomen pelvis will be obtained to assess for ureteral calculus, appendicitis, diverticulitis, and bowel perforation. Lab Data Attestation: I reviewed the patient's lab results. Lab results narrative: CBC was reviewed and was within normal limits. Basic metabolic profile was reviewed and was essentially within normal limits. Urinalysis was reviewed. There is no evidence of urinary tract infection or hematuria. Labs: Laboratory Results - last 24 hr 08/18/23 08/18/23 13:25 13:35 WBC 6.9 RBC 3.92 L Hgb 12.1 Hct 37.4 MCV 95.4 MCH 30.9 MCHC 32.4 RDW Std Deviation 41.3 RDW Coeff of Carlos 12.0 Plt Count 287 MPV 9.6 Immature Gran % (Auto) 0.400 Neut % (Auto) 79.8 H Lymph % (Auto) 8.7 L [place] % (Auto) 6.9 Eos % (Auto) 3.6 Baso % (Auto) 0.6 Absolute Neuts (auto) 5.5 Absolute Lymphs (auto) 0.60 L Nucleated RBC % 0 Sodium 133 L Potassium 4.1 Chloride 100 Carbon Dioxide 28.0 Anion Gap 5 BUN 14 Creatinine 1.09 H Estim Creat Clear Calc 48.32 Est GFR (MDRD) Af Amer 64 Est GFR (MDRD) Non-Af 53 L BUN/Creatinine Ratio 12.8 Glucose 124 H Calcium 9.7 Urine Color Yellow Urine Clarity Clear Urine pH 6.5 Ur Specific [place] 1.010 Urine Protein 15 H Urine Glucose (UA) Normal Urine Ketones Negative Urine Occult Blood Negative Urine Nitrite Negative Urine Bilirubin Negative Urine Urobilinogen 1 H Ur Leukocyte Esterase 100 H Urine RBC 0 SEEN Urine WBC 0-5 SEEN Ur Squamous Epith Cells 0-5 SEEN Urine Bacteria 0 SEEN Urine Mucus 0 SEEN Radiography Diagnostic Testing: Clinical Impression(s) from Imaging Studies Abdomen/Pelvis CT 08/18/23 13:47 IMPRESSION: Prior gastric surgery with a moderate-sized hiatal hernia. Findings suggestive of atelectasis and/or scarring at the lung bases. No obstructive uropathy is seen at this time. Questionable small gallstones. Electronically Signed: Cristi Pena MD at 14:06 EDT , CT scan of the abdomen pelvis was obtained. There is atelectasis and/or scarring at the lung bases. There is no ureteral calculus or obstructive uropathy noted. There is a moderate-sized hiatal hernia. There is no acute abnormality. This was interpreted by the radiologist was also independently reviewed by myself. Treatment and Re-Evaluation :: Patient was given IV fluids, morphine and Zofran. Patient was feeling better on reevaluation. Patient was advised of her findings. Patient was instructed to drink plenty of fluids. Patient was given a prescription for a short course of [place]. Patient was instructed to follow-up with her primary care physician in 7 to 10 days. Patient was instructed to return if worse in any way. Patient understood and was agreeable with the plan. All questions were answered. Discharge Plan Triage Chief Complaint: Complaint ED Provider: Tyson Rodrigues Dx/Rx/DC Orders Clinical Impression: Acute right flank pain, Right inguinal pain Instructions: ED Abdominal Pain Unkn Cause Fem Prescriptions: New hydrocodone-acetaminophen 5-325 mg tablet 1 tab PO Q6H PRN PRN (Reason: Pain) 3 Days Qty: 10 0RF No Action spironolactone [Aldactone] 100 mg tablet 100 mg PO QDAY rabeprazole [AcipHex] 20 mg tablet,delayed release (DR/EC) 20 mg PO BID cyanocobalamin (vitamin B-12) 1,000 mcg/mL solution 100 mcg IM QMONTH alprazolam [Xanax] 0.5 mg tablet 0.5 mg PO BID amitriptyline 50 mg tablet 50 mg PO QHS hydrochlorothiazide 12.5 mg capsule 12.5 mg PO DAILY Dulera 100-5 mcg/actuation HFA aerosol inhaler 2 puff INHALATION BID Spiriva Respimat 1.25 mcg/actuation mist 2 puff INHALATION DAILY prednisone 50 mg tablet 50 mg PO DAILY Qty: 5 0RF Primary Care Provider: Sandee Márquez Referrals: Sandee Márquez MD [Primary Care Provider] - 1-2 Weeks Print Language: [place] Disposition Disposition: Home, Self Care
[2023-08-18] MEDS: 0.9% Normal Saline (1000mL) 1,000 ML 1000 ML IV (13:28)
[2023-08-18] MEDS: Morphine 4 MG/ML Syringe IV (13:29)
[2023-08-18] MEDS: Ondansetron 4 MG/2 ML Vial IV (13:29)
[2023-08-18 13:37] LABS: Absolute Neutrophil Count 5.5 X10^3/uL (2.0-7.7); Basophil# 0.04 X10^3/uL; Basophil% 0.6 % (0-1); Eosinophil# 0.25 X10^3/uL; Eosinophils% 3.6 % (0-5); Hematocrit 37.4 % (37-47); Hemoglobin 12.1 g/dL (12.0-15.0); Lymphocyte % 8.7 % (19-41); Mean Corp Hgb Conc 32.4 g/dL (32-36); Mean Corpuscular Hgb 30.9 pg (27.0-32.0); Mean Corpuscular Volume 95.4 fL (81-99); Mean Platelet Vol. 9.6 fl (6.2-12.0); Monocyte# 0.48 X10^3/uL; Monocyte% 6.9 % (0-10); NRBC Flagged by Analyzer 0 % (0-5); Neutrophil # 5.53 X10^3/uL (2.7-7.7); Neutrophil % 79.8 % (47-70); POSITIVE DIFFERENTIAL YES; Platelet Count 287 K/mm3 (150-450); RBC Distribution Width SD 41.3 fl (35.1-43.9); Red Blood Count 3.92 M/mm3 (4.2-5.4); White Blood Count 6.9 K/mm3 (4.4-11.0)
[2023-08-18 13:40] LABS: Bacteria 0 SEEN /hpf (None Seen); Mucous, Urine 0 SEEN /hpf (<or=2+); Red Blood Cells-Urine 0 SEEN /hpf (0-5)
[2023-08-18 13:46] LABS: Color, Urine Yellow (Yellow); Glucose, Dipstick Normal (Normal); Ketone-Dipstick Negative (Negative); Leukocyte Esterase-Dipstick 100 /ul (Negative); Nitrite-Dipstick Negative (Negative); Occult Blood-Urine Negative /ul (Negative); Protein-Dipstick 15 mg/dl (Negative); Urine Bilirubin Dipstick Negative (Negative); Urine Clarity Clear (Clear); Urine Urobilinogen 1 mg/dl (Normal); Urine pH 6.5 (5.0 - 8.0)
--- NOTE | 2023-08-18 13:47 | CT_ITS ---
STUDY: CT ABDOMEN AND PELVIS WITHOUT CONTRAST REASON FOR EXAM: Female, 68 years old. Right flank pain RADIATION DOSAGE (If Supplied By Facility): CTDIvol = ( 20.03 ) mGy, DLP = ( 1026.86 ) mGycm TECHNIQUE: Transaxial images were obtained from the dome of the diaphragm to the symphysis pubis without oral contrast, and without intravenous contrast. Sagittal and coronal images were reconstructed. Individualized dose optimization techniques were used for this CT. COMPARISON: None. FINDINGS: Increased markings at the lung bases suggestive of either atelectasis and/or scarring. Coronary artery calcification. Normal liver. Questionable small gallstones. Normal spleen. Normal pancreas. Normal bilateral adrenal glands. 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 Normal left kidney. Prior gastric surgery with small to moderate-sized hiatal hernia. Normal small intestine. There are scattered colonic diverticula consistent with diverticulosis. The appendix is visualized and appears normal. There is scattered atherosclerotic calcification of the abdominal aorta, without a demonstrated aneurysm. Normal inferior vena cava. There is a small retroperitoneal lymphadenopathy with enlarged nodes no greater than 10mm in the short axis diameter. Normal urinary bladder. Normal abdominal wall. There are degenerative changes of the visualized lumbar spine. CT/Abdomen/Pelvis without Cont IMPRESSION: Prior gastric surgery with a moderate-sized hiatal hernia. Findings suggestive of atelectasis and/or scarring at the lung bases. No obstructive uropathy is seen at this time. Questionable small gallstones. Electronically Signed: Cristi Pena MD at 14:06 EDT ,
[2023-08-18 13:49] LABS: Anion Gap 5 (5-15); BUN 14 mg/dL (7-18); BUN/Creat Ratio 12.8 RATIO (10-20); Calcium,Total 9.7 mg/dL (8.5-10.1); Chloride 100 mmol/L (98-107); Creatinine, Serum 1.09 mg/dL (0.55-1.02); EST Glomerular Filtration Rate 53 mL/min (>60); Est Glom Filt Rate - Afr Amer 64 mL/min (>60); Estimated Creatinine Clearance 48.32 ml/min; Glucose 124 mg/dL (74-106); Potassium 4.1 mmol/L (3.5-5.1); Sodium Level 133 mmol/L (136-145)
[2023-08-18 13:52] LABS: Squamous Epithelial Cells - UA 0-5 SEEN /hpf (5-10); White Blood Cells 0-5 SEEN /hpf (0-5)
[2023-08-18 14:09] VITALS: BP 136/75; PULSE 75; RESP 18; O2SAT 95
[2023-08-18 15:05] VITALS: BP 118/73; PULSE 77; RESP 18; TEMP 36.7; O2SAT 98
== END 2023-08-18 15:12 | disposition home or self-care (01) ==
PROVIDERS: Emergency Provider Emergency Medicine; PCP Internal Medicine; Visit Provider Emergency Medicine
DX: R10.31 Right lower quadrant pain (principal); R50.9 Fever, unspecified; R11.0 Nausea; I10 Essential (primary) hypertension; Z79.899 Other long term (current) drug therapy; Z87.891 Personal history of nicotine dependence
CPT/HCPCS: 74176; 80048; 81001; 85025; 96361; 96374; 96375; 99283; J7030; A4216; J2405

== ENCOUNTER 2024-07-04 17:31 | Emergency (ER) | payer BC, SELFPAY ==
[2024-07-04] VITALS (8 sets, daily range): BP systolic 116–150; BP diastolic 72–95; PULSE 78–129; RESP 14–24; TEMP 36.2–37.1; O2SAT 94–100; BMI 38.2
--- NOTE | 2024-07-04 17:59 | EKG12_ITS ---
Test Reason : SOB Blood Pressure : */* mmHG Vent. Rate : 88 BPM Atrial Rate : 88 BPM P-R Int : 148 ms QRS Dur : 86 ms QT Int : 346 ms P-R-T Axes : 19 12 24 degrees QTcB Int : 418 ms Normal sinus rhythm Normal ECG Confirmed by Carlitos Davies ([id number]), brands editor NEDA SUMNER ([id number]) on 07/06/2024 10:01:26 AM Referred By: Confirmed By: Carlitos Davies
--- NOTE | 2024-07-04 17:59 | RAD_ITS ---
PROCEDURE: CHEST PA AND LATERAL 07/04/2024 REASON FOR EXAM: CHEST PAIN TECHNIQUE: Frontal and lateral views of the chest. COMPARISON: 07/2020 FINDINGS: Hardware: None Heart: The heart size is normal. Mediastinum: The mediastinal contour is unremarkable. Lungs: Mild bibasilar atelectasis. No focal consolidation. No pneumothorax. No pleural effusion. Bones: The bones are unremarkable. RAD/Chest PA and Lateral IMPRESSION: NO ACUTE FINDINGS. [facility]
--- NOTE | 2024-07-04 18:01 | ED.VIS.DYS ---
HPI History of Present Illness Chief Complaint: Asthma Informant: patient Onset/Context/Timing Onset: Days Context: gradual Timing: Continuous Quality: Positive for Dyspnea on exertion Current Severity: Mild Maximum Severity: Mild Worsened by: Coughing Relieved by: Nothing Associated Symptoms cough Chest Pain: Positive for Sharp Narrative Narrative: 69-year-old female history of hypertension and asthma. No cardiac history. Dates the last 5 days beginning on Wednesday she has had shortness of breath. Thought it was an asthma flare. Has an inhaler or nebulizer at home. Said the inhaler has not been helping her much. Her nebulizer of the medications old she has not been using it. States she also developed some midsternal chest discomfort only after coughing. Describes it as a pressure. Has not noticed significant wheezing. Has a cough that is nonproductive. No fever. No hemoptysis. No leg pain or swelling. PE Risk Factors: Negative for Cancer, OCP + Smoking + > 35, Recent immobilization, Recent surgery or Recent travel Prior similar symptoms: Yes Recent Illness/Hospitalization: No PFSH PFSH Medical History Diffuse idiopathic pulmonary neuroendocrine cell hyperplasia Thyroid nodule Hypertension Anxiety and depression Home Medications ?Medication ?Instructions ?Recorded ?Last Taken ?Type alprazolam 0.5 mg tablet (Xanax) 0.5 mg PO BID anxiety 06/23/17 03/02/18 16:00 History cyanocobalamin (vitamin B-12) 100 mcg IM QMONTH supplement 06/23/17 02/14/18 History 1,000 mcg/mL injection solution rabeprazole 20 mg tablet,delayed 20 mg PO BID reflux 06/23/17 03/02/18 16:00 History release (AcipHex) spironolactone 100 mg tablet 100 mg PO QDAY diuretic 06/23/17 03/01/18 17:00 History (Aldactone) hydrochlorothiazide 12.5 mg capsule 12.5 mg PO DAILY 08/15/20 Unknown History albuterol sulfate 2.5 mg/3 mL 2.5 mg (3 mL) inhalation Q4H PRN 07/04/24 Unknown Rx (0.083 %) solution for nebulization #25 vials albuterol sulfate 90 mcg/actuation 2 puff inhalation Q4H PRN PRN 07/04/24 Unknown History aerosol inhaler shortness of breath or wheezing fluticasone fur. 200 mcg-umeclid 1 inh inhalation Q24H 07/04/24 Unknown History 62.5 mcg-vilant 25 mcg inhalat.powder (Trelegy Ellipta) losartan 50 mg tablet 50 mg PO DAILY 07/04/24 Unknown History octreotide,microspheres IM .every four weeks 07/04/24 Unknown History zafirlukast 20 mg tablet 20 mg PO BID 07/04/24 Unknown History Allergy/AdvReac Type Severity Reaction Status Date / Time codeine Allergy Mild Other Verified 07/04/24 17:34 fluoxetine (From Prozac) Allergy Mild Angioedema Verified 07/04/24 17:34 Sulfa (Sulfonamide Allergy Mild Other Verified 07/04/24 17:34 Antibiotics) Family History Mother Breast cancer Aunt Breast cancer Cancer ovarian Father Cancer lung-smoker Brother Myocardial infarction Surgical History S/P breast lumpectomy History of repair of hiatal hernia bladder sling H/O tubal ligation Hx of breast reduction, elective Social History Smoking Status: Former smoker alcohol intake: current details: social substance use type: does not use caffeine: Yes what type of physical activity do you participate in: none seatbelt use: always do you feel safe at home: Yes additional social history: [employer]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 Shortness of breath. Atypical nonexertional chest pain or coughing. Constitutional Constitutional ED: Denies chills or fever(s) Eyes Eyes: Denies blurry vision ENT ENT ED: Denies ear pain Cardiovascular Cardiovascular: Reports chest pain; Denies palpitations or racing heartbeat Respiratory/Chest Respiratory/Chest: Reports cough and dyspnea Gastrointestinal Gastrointestinal: Denies abdominal pain, constipation, diarrhea, melena, nausea or vomiting Genitourinary Genitourinary ED: Denies dysuria or hematuria Musculoskeletal Musculoskeletal: Denies arthralgias or back pain Integumentary Denies abscess or Abrasions Neurologic Neurologic: Denies headache(s) Psychiatric Psychiatric: Denies anxiety Endocrine Endocrinology: Denies cold intolerance Hematologic/Lymphatic Hematologic/Lymphatic: Denies easy bleeding, easy bruising or lymphadenopathy Allergic/Immunologic Allergic/Immunologic ED: Denies mouth swelling, tongue swelling or urticaria EXAM Physical Exam Narrative Exam Narrative: 61-year-old female sitting upright in bed. Vital signs are stable. She initially presented her pulse is 129 and that was after walking up the entrance ramp. Her pulse oximeter was 98% on room air. No hypoxia. Prior to any treatment her current blood pressure is 138/87 and her heart rate is 95. She does not look septic or toxic. Currently in no distress. H EENT exam pupils round react to light. Moist with membranes. Neck nontender no JVD. No lymphadenopathy. Lungs clear to auscultation bilaterally. No rales or rhonchi. Very minimal if any wheezing with deep breath. She does have a prolonged expiratory phase. It is equal and symmetrical. Heart regular rhythm rate about 95 no murmur. Chest wall and ribs nontender. Abdomen soft nontender. Moving all 4 extremities. Nontender no edema. 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 Normal dorsi plantarflexion. Calves are nontender without edema or cords. Back nontender. Neurologically she is awake alert. Answering questions and following commands. Const Vital Signs: 07/04/24 17:34 07/04/24 17:42 07/04/24 17:46 Temperature 97.1 F L Temperature Source Temporal Pulse Rate 129 H 95 Respiratory Rate 18 15 Respiratory Effort Short of Breath Respiratory Depth Deep Respiratory Pattern Tachypnea Blood Pressure 150/95 H 138/87 H Blood Pressure Mean 113 104 Pulse Ox 98 98 Oxygen Delivery Method Room Air Room Air Room Air 07/04/24 17:47 07/04/24 17:52 07/04/24 18:00 Temperature Temperature Source Pulse Rate 99 91 Respiratory Rate 17 14 Respiratory Effort Short of Breath Respiratory Depth Respiratory Pattern Blood Pressure 116/72 Blood Pressure Mean 84 Pulse Ox 94 95 Oxygen Delivery Method Room Air 07/04/24 18:13 07/04/24 18:15 07/04/24 18:21 Temperature Temperature Source Pulse Rate 86 85 Respiratory Rate 16 24 H Respiratory Effort Respiratory Depth Respiratory Pattern Blood Pressure Blood Pressure Mean Pulse Ox 94 Oxygen Delivery Method Room Air 07/04/24 18:30 07/04/24 18:31 Temperature Temperature Source Pulse Rate 89 Respiratory Rate 21 H Respiratory Effort Respiratory Depth Respiratory Pattern Blood Pressure Blood Pressure Mean Pulse Ox 96 Oxygen Delivery Method Room Air Positive well nourished and well developed; Negative for cachectic, contractures or unkempt General Appearance ED: well developed; Negative for unkempt, cachectic, contractures or pallor Nutritional Appearance: Negative for cachectic HEENT Reports moist mucous membranes atraumatic; Negative for trauma or tenderness Eyes PERRL and EOMs intact bilaterally General Eye ED: Negative for pale conjunctiva Neck no lymphadenopathy, supple, no meningeal signs and no JVD General: Negative for tenderness Resp normal respiratory effort and clear to auscultation bilaterally Resp Narrative: Prolonged expiratory phase bilaterally. Few wheezes with prolonged expiration. No rales or rhonchi. Auscultation: wheezes; Negative for rales or rhonchi Cardio regular rate, regular rhythm, S1 normal heart sound, S2 normal heart sound and no murmurs Rate: Negative for bradycardia or tachycardic Rhythm: abnormal rhythm GI non-tender, non-distended and no masses Auscultation: normoactive bowel sounds Palpation: soft; Negative for tender, guarding or rebound tenderness present Back/Spine no CVA tenderness and normal to inspection General Back: Negative for CVA tenderness Extremity normal to inspection General Extremety ED: Negative for edema or tenderness General Extremity: Negative for edema Neuro oriented x3, CN's II-XII intact bilaterally and no sensory deficits noted Sensorium / Orientation: alert, oriented to person, oriented to place and oriented to time; Negative for orientation impaired, confused, lethargic or stuporous Speech: speech normal Motor Exam: strength 5/5 throughout Psych mental status grossly normal Appearance: Negative for unkempt Attitude: No agitated Mood & Affect: Negative for depressed, anxious or tearful Thought Process: normal thought process Skin no wounds and skin turgor normal General Skin Exam: Negative for jaundice or pallor Lesions: no lesions Rashes: no rashes Trauma: Negative for abrasion, laceration or puncture MDM MDM MDM Narrative Medical decision making narrative: 69-year-old female with dyspnea suspect secondary exacerbation of asthma. Atypical chest pain I do not think is going to be cardiac. Primarily after coughing. Is not reproducible. Patient undergo cardiac workup. Albuterol and DuoNeb aerosols. She requested a Kenalog shot because it prednisone often irritates her stomach. Repeat exam patient doing well at 7:15 PM. Lungs clear. Breathing easier. Better expiratory phase. We went over her test results. She has chronic mild anemia. Chronic mild hyponatremia. This is atypical noncardiac sounding chest pain. She did not want to wait for 2-hour troponin. She is also had several days with coughing. I am comfortable letting her to be discharged home. Prescription for albuterol for nebulizer at home. She was given an Kenalog shot and will not be placed on oral prednisone. She does return if worse. Follow-up with her doctor if not improving. History & Record Review Discussion w/independent historian: Patient Additional record(s) reviewed:: Prior inpatient record, Prior outpatient record, Prior ED visit and Prior labs Lab Data Attestation: I reviewed the patient's lab results. Lab results narrative: CBC shows a white count 8. H&H 11.6 and 33. Platelets 309. Electrolytes show sodium 131. Gap 13. BUN 20 creatinine 1.2. Glucose 112. Labs are consistent with prior. Chronic anemia. Chronic hyponatremia. Initial troponin 6. 2-hour troponin equals Labs: Laboratory Results - last 24 hr 07/04/24 18:08 WBC 8.2 RBC 3.69 L Hgb 11.6 L Hct 33.9 L MCV 91.9 MCH 31.4 MCHC 34.2 RDW Std Deviation 40.4 RDW Coeff of Carlos 12.0 Plt Count 309 MPV 10.3 Immature Gran % (Auto) 0.200 Neut % (Auto) 63.1 Lymph % (Auto) 27.1 [place] % (Auto) 7.9 Eos % (Auto) 1.0 Baso % (Auto) 0.7 Absolute Neuts (auto) 5.2 Absolute Lymphs (auto) 2.22 Nucleated RBC % 0 Sodium 131 L Potassium 4.0 Chloride 98 Carbon Dioxide 19.8 L Anion Gap 13 BUN 20 H Creatinine 1.22 H Estim Creat Clear Calc 42.98 L Est GFR (MDRD) Non-Af 48 L BUN/Creatinine Ratio 16.2 Glucose 112 H Calcium 9.7 Troponin T High Sens 6 Radiography Chest X-Ray - ED: 2 View, Read by ED Physician, Normal, Heart, Lungs, Mediastinum, Bony Structures, No Acute Disease and Chronic Changes Diagnostic Testing: Chest x-ray, 2 views, AP and lateral, interpreted myself shows no acute abnormality. Normal cardiac silhouette. Normal mediastinum. Normal lung [place]. No pneumonia. Rhythm Strip Rhythm Strip: Sinus Rhythm Rate: 88 Ectopy: None EKG Initial EKG: Attestation: I personally reviewed and interpreted this EKG as follows: Interpretation: Sinus Rhythm and No Acute Injury Pattern Comments: Normal sinus rhythm rate 88. No acute signs of OR or ischemia. No dysrhythmia. No change from prior EKG from 2019. Discharge Plan Triage Chief Complaint: Asthma ED Provider: Higinio Fields Dx/Rx/DC Orders Clinical Impression: Acute asthma flare, Atypical chest pain, History of hypertension Instructions: Asthma Prescriptions: New albuterol sulfate 2.5 mg /3 mL (0.083 %) solution for nebulization 2.5 mg inhalation Q4H PRN Qty: 25 0RF Rx Instructions: Use q4 hours and PRN for wheezing No Action spironolactone [Aldactone] 100 mg tablet 100 mg PO QDAY rabeprazole [AcipHex] 20 mg tablet,delayed release (DR/EC) 20 mg PO BID cyanocobalamin (vitamin B-12) 1,000 mcg/mL solution 100 mcg IM QMONTH alprazolam [Xanax] 0.5 mg tablet 0.5 mg PO BID hydrochlorothiazide 12.5 mg capsule 12.5 mg PO DAILY albuterol sulfate 90 mcg/actuation HFA aerosol inhaler 2 puff inhalation Q4H PRN PRN (Reason: shortness of breath or wheezing) losartan 50 mg tablet 50 mg PO DAILY zafirlukast 20 mg tablet 20 mg PO BID Trelegy Ellipta 200-62.5-25 mcg blister with device 1 inh inhalation Q24H octreotide,microspheres [Sandostatin LAR [place]] IM .every four weeks Patient Comments: takes every four weeks Primary Care Provider: Sandee Márquez Referrals: Sandee Márquez MD [Primary Care Provider] - 3-5 Days if not improving Activity Restrictions/Additional Instructions: Use your inhaler and your nebulizer as needed. Specifically if you are wheezing or short of breath or feel tight. Follow-up with your doctor if not improving. The Kenalog shot should give you more relief over the next several days. Return if feeling a lot worse. Print Language: Turkmen Disposition Disposition: Home, Self Care
[2024-07-04] MEDS: Ipratropium/Albuterol Sulfate 3 ML AMPUL.NEB INHALATION (18:05)
[2024-07-04] MEDS: Triamcinolone Acetonide 40 MG/ML Vial IM (18:05)
[2024-07-04] MEDS: Albuterol 2.5 MG/3 ML VIAL.NEB. INHALATION (18:05)
[2024-07-04 18:18] LABS: Absolute Lymphocyte Count 2.22 X10^3/uL (0.83-4.51); Absolute Neutrophil Count 5.2 X10^3/uL (2.0-7.7); Basophil# 0.06 X10^3/uL; Basophil% 0.7 % (0-1); Eosinophil# 0.08 X10^3/uL; Hematocrit 33.9 % (37-47); Hemoglobin 11.6 g/dL (12.0-15.0); Lymphocyte # 2.22 X10^3/ul (0.83-4.51); Lymphocyte % 27.1 % (19-41); Mean Corp Hgb Conc 34.2 g/dL (32-36); Mean Corpuscular Hgb 31.4 pg (27.0-32.0); Mean Corpuscular Volume 91.9 fL (81-99); Mean Platelet Vol. 10.3 fl (6.2-12.0); Monocyte# 0.65 X10^3/uL; Monocyte% 7.9 % (0-10); NRBC Flagged by Analyzer 0 % (0-5); Neutrophil # 5.17 X10^3/uL (2.7-7.7); Neutrophil % 63.1 % (47-70); Platelet Count 309 K/mm3 (150-450); RBC Distribution Width SD 40.4 fl (35.1-43.9); Red Blood Count 3.69 M/mm3 (4.2-5.4); White Blood Count 8.2 K/mm3 (4.4-11.0)
[2024-07-04 18:48] LABS: Troponin T High Sensitivity 6 ng/L (<=14)
[2024-07-04 18:49] LABS: Anion Gap 13 (5-15); BUN 20 mg/dL (4-19); BUN/Creat Ratio 16.2 RATIO (10-20); Calcium,Total 9.7 mg/dL (7.6-11.0); Carbon Dioxide 19.8 mmol/L (21.0-32.0); Chloride 98 mmol/L (98-108); Creatinine, Serum 1.22 mg/dL (0.70-1.20); EST Glomerular Filtration Rate 48 (>60); Estimated Creatinine Clearance 42.98 ml/min (50-250); Glucose 112 mg/dL (70-99); Sodium Level 131 mmol/L (133-145)
== END 2024-07-04 19:26 | disposition home or self-care (01) ==
PROVIDERS: Emergency Provider Emergency Medicine; PCP Internal Medicine; Visit Provider Emergency Medicine
DX: J45.901 Unspecified asthma with (acute) exacerbation (principal); E87.1 Hypo-osmolality and hyponatremia; D64.9 Anemia, unspecified; I10 Essential (primary) hypertension; R07.89 Other chest pain; F32.A Depression, unspecified; F41.9 Anxiety disorder, unspecified; Z79.899 Other long term (current) drug therapy; Z87.891 Personal history of nicotine dependence
CPT/HCPCS: 71046; 80048; 84484; 85025; 93005; 94640; 96372; 99285; A4216